=== PATIENT | male | born 1990 | race Caucasian/White ===

== ENCOUNTER 2018-11-29 13:52 | Emergency (ER) | payer SELFPAY ==
[2018-11-29 14:52] LABS: Bilirubin Negative (Negative); Blood, Urine 1+ (Negative); Clarity Turbid (Clear); Glucose, Urine (Dipstick) Normal (Negative); Leukocyte 500 Leu/uL (Negative); Nitrite Negative (Negative); Protein, Urine (Dipstick) 300 mg/dL (Neg-Trace); Squamous Epithelial 0-3 HPF (0-3); WBC/HPF Greater than 50 HPF (0-3)
[2018-11-29 14:54] LABS: Bacteria/HPF Rare-Few HPF (None Seen); Mucous/LPF 2+ LPF (<2+)
[2018-11-29] MEDS ORDERED: Azithromycin 250 MG TAB ONE (15:16)
[2018-11-29] MEDS ORDERED: cefTRIAXone\\ROCEPHIN 250 MG VIAL ONE (15:16)
[2018-11-29] MEDS ORDERED: Lidocaine 1% PF 5 ML VIAL ONE ×2 (15:17→15:19)
[2018-11-29] MEDS ORDERED: Lidocaine 1% (PF) 30 ML VIAL ONE (15:18)
[2018-12-01 01:40] LABS: Chlam.trachomatis by PCR,Urine Not Detected (NotDetected)
== END 2018-11-29 15:25 | disposition home or self-care (01) ==
LOC: ERS 13:52
DX: N39.0 Urinary tract infection, site not specified (principal)
CPT/HCPCS: 36416; 81003; 81015; 87086; 87491; 87591; 96372; 99283; J0696; J2001

== ENCOUNTER 2018-12-06 11:51 | Emergency (ER) | payer SELFPAY | END 2018-12-06 13:20 | disposition home or self-care (01) | LOC: ERS 11:51 | DX: F41.9 Anxiety disorder, unspecified (principal); F17.220 Nicotine dependence, chewing tobacco, uncomplicated | CPT/HCPCS: 99283 ==

== ENCOUNTER 2019-02-20 20:52 | Emergency (ER) | payer SELFPAY ==
[2019-02-20] MEDS ORDERED: Ketorolac Tromethamine 30 MG/ML VIAL ONE (21:14)
[2019-02-20] MEDS ORDERED: HYDROcodone/Acetaminophen 5/325 mg Tablet ONE (21:14)
--- NOTE | 2019-02-20 21:30 | RAD ---
EXAM: 3 views of the left ankle HISTORY: Ankle pain after jumping out of a truck bed COMPARISON: None FINDINGS: 3 views of the left ankle shows no evidence of acute fracture or dislocation. An ossificati on along the medial malleolus may be sequelae from remote trauma. Moderate lateral soft tissue swelling is seen. No degenerative changes are present. IMPRESSION: No evidence of acute osseous abnormality.
--- NOTE | 2019-02-20 21:31 | RAD ---
EXAM: 3 views of the left foot HISTORY: Foot pain COMPARISON: None FINDINGS: 3 views of the left foot shows no evidence of acute fracture or dislocation. Mild dorsal so ft tissue swelling is seen. No degenerative changes are present. IMPRESSION: No evidence of acute osseous abnormality.
== END 2019-02-20 21:45 | disposition home or self-care (01) ==
LOC: ERS 20:52
DX: S93.402A Sprain of unspecified ligament of left ankle, initial encounter (principal); F17.210 Nicotine dependence, cigarettes, uncomplicated; W06.XXXA Fall from bed, initial encounter
CPT/HCPCS: 96372; J1885

== ENCOUNTER 2019-07-03 20:23 | Emergency (ER) | payer OTHER, SELFPAY ==
--- NOTE | 2019-07-03 21:05 | RAD ---
LEFT HAND 07/03/19 Three views. HISTORY: Injury. The carpals appear intact. The metacarpals and phalanges appear intact. There is a radiopaque foreign body in the soft tissues of the distal left index finger along its radi al margin at the level of the DIP joint. IMPRESSION: 1. No acute osseous abnormality. 2. Soft tissue foreign body in the distal left index finger. POS: [facility]
--- NOTE | 2019-07-03 21:05 | RAD ---
RIGHT HAND: 07/03/19 Three views. HISTORY: Injury. The carpals appear intact. Metacarpals and phalanges appear intact. IMPRESSION: No evidence of acute fracture. POS: [email or web address]
[2019-07-03] MEDS ORDERED: Ibuprofen 200 MG TAB ONE (21:41)
== END 2019-07-03 21:57 | disposition home or self-care (01) ==
LOC: ERS 20:23
DX: S60.222A Contusion of left hand, initial encounter (principal); S60.221A Contusion of right hand, initial encounter; F17.220 Nicotine dependence, chewing tobacco, uncomplicated; W19.XXXA Unspecified fall, initial encounter

== ENCOUNTER 2019-07-29 11:34 | Emergency (ER) | payer SELFPAY | END 2019-07-29 12:44 | disposition home or self-care (01) | LOC: ERS 11:34 | DX: L60.0 Ingrowing nail (principal); F17.220 Nicotine dependence, chewing tobacco, uncomplicated | CPT/HCPCS: 99283 ==